=== PATIENT | female | born 1995 | race Caucasian/White ===

== ENCOUNTER 2022-01-01 21:11 | Emergency (ER) | payer SELFPAY ==
[~2022-01-01] VITALS: Ht 162.6 cm; Wt 93.9 kg
[2022-01-01] MEDS ORDERED: IBUPROFEN 600MG TABLET PO ONE (23:45)
[2022-01-02 01:21] VITALS: BP 124/78
== END 2022-01-02 01:25 | disposition home or self-care (01) ==
LOC: ER 21:11
DX: M79.631 Pain in right forearm (principal)
CPT/HCPCS: 73090; 73110; 81025; 99284